=== PATIENT | female | born 1955 | race Caucasian/White ===

== ENCOUNTER 2020-10-25 14:50 | Emergency (ER) | payer OTHER ==
[~2020-10-25] VITALS: Ht 162.6 cm; Wt 72.6 kg
[2020-10-25 14:50] VITALS: BP_SYST 122
[2020-10-25] MEDS ORDERED: IBUPROFEN 800 MG TABLET PO ONE (15:45)
[2020-10-25 16:35] VITALS: BP_SYST 122
== END 2020-10-25 16:35 | disposition home or self-care (01) ==
LOC: SED 14:50
DX: S82.091A Other fracture of right patella, initial encounter for closed fracture (principal); W01.0XXA Fall on same level from slipping, tripping and stumbling without subsequent striking against object, initial encounter; Y93.01 Activity, walking, marching and hiking; Y92.89 Other specified places as the place of occurrence of the external cause; Y99.8 Other external cause status
CPT/HCPCS: 73564; 99283

== ENCOUNTER 2023-01-18 15:42 | Emergency (ER) | payer OTHER ==
[~2023-01-18] VITALS: Ht 162.6 cm; Wt 65.8 kg
[2023-01-18 16:01] VITALS: BP_SYST 134
[2023-01-18] MEDS ORDERED: KETOROLAC TROMETHAMINE 60 MG/2 ML VIAL IM ONE (19:00)
[2023-01-18] MEDS ORDERED: DICL20GE TP (19:35)
[2023-01-18] MEDS ORDERED: IBUP-1971 PO (19:35)
[2023-01-18 19:47] VITALS: BP_SYST 134
== END 2023-01-18 19:47 | disposition home or self-care (01) ==
LOC: SED 15:42
DX: S80.02XA Contusion of left knee, initial encounter (principal); Z79.899 Other long term (current) drug therapy; W01.0XXA Fall on same level from slipping, tripping and stumbling without subsequent striking against object, initial encounter; Y93.89 Activity, other specified; Y92.89 Other specified places as the place of occurrence of the external cause; Y99.8 Other external cause status
CPT/HCPCS: 99283; 73564; 96372; J1885